=== PATIENT | male | born 1990 | race Caucasian/White ===

== ENCOUNTER 2018-12-19 23:36 | Emergency (ER) | payer MEDICAID ==
--- NOTE | 2018-12-20 00:01 | ERPHSYRPT ---
- History of Present Illness Time Seen by Provider: 12/20/18 00:00 Source: patient, family Exam Limitations: no limitations Physician History: 28 y/o left handed white male presents with laceration to tip of left ring finger. occurred [employer] on [employer]. does not recall when last tetanus shot was. Timing/Duration: today Quality: painful Severity: mild Location: hands (left tip of ring finger) Associated Symptoms: denies symptoms - Review of Systems Constitutional: No Symptoms Eyes: No Symptoms Ears, Nose, & Throat: No Symptoms Respiratory: No Symptoms Cardiac: No Symptoms Abdominal/Gastrointestinal: No Symptoms Genitourinary Symptoms: No Symptoms Musculoskeletal: No Symptoms Skin: Other (laceration tip of left ring finger) Neurological: No Symptoms Psychological: No Symptoms Endocrine: No Symptoms Hematologic/Lymphatic: No Symptoms Immunological/Allergic: No Symptoms All Other Systems: Reviewed and Negative - Past Medical History Neurological History: No Pertinent History ENT History: No Pertinent History Cardiac History: No Pertinent History Respiratory History: No Pertinent History Endocrine Medical History: No Pertinent History Musculoskeletal History: No Pertinent History GI Medical History: No Pertinent History History: No Pertinent History Psycho-Social History: No Pertinent History Male Reproductive Disorders: No Pertinent History - Past Surgical History Neuro Surgical History: No Pertinent History Cardiac: No Pertinent History Respiratory: No Pertinent History Gastrointestinal: No Pertinent History Genitourinary: No Pertinent History Musculoskeletal: No Pertinent History Male Surgical History: No Pertinent History - Nursing Vital Signs Nursing Vital Signs: Initial Vital Signs Temperature 99.4 F 12/19/18 23:53 Pulse Rate 90 12/19/18 23:53 Respiratory Rate 18 12/19/18 23:53 O2 Sat by Pulse Oximetry 99 12/19/18 23:53 Pain Scale Pain Intensity 6 - Physical Exam General Appearance: no apparent distress, alert, anxiety Eye Exam: PERRL/EOMI Ears, Nose, Throat Exam: normal ENT inspection, moist mucous membranes Neck Exam: normal inspection, non-tender, supple, full range of motion Respiratory Exam: normal breath sounds Gastrointestinal/Abdomen Exam: soft, No tenderness Rectal Exam: not done Back Exam: normal inspection, normal range of motion, No CVA tenderness, No vertebral tenderness Extremity Exam: lacerations (tip of left ring finger) Neurologic Exam: alert, oriented x 3, cooperative, composite mechanic II-XII nml as tested Skin Exam: normal color, warm, dry Lymphatic Exam: No adenopathy SpO2 Interpretation: normal O2 Delivery: Room Air Procedures - Laceration/Wound Repair Left Finger Wound Length (cm): 0.5 Wound's Depth, Shape: superficial Wound Explored: clean Irrigated: Yes Hibiclens Prep: Yes Anesthesia: 1% Lidocaine Volume Anesthetic (ccs): 1 Progress: 12/20/18 00:19 no sutures needed. used 1% lidocaine plain, silver nitrate sticks, bacitracin ointment, pressure dressing. - Course Nursing assessment & vital signs reviewed: Yes - Progress Progress: improved Counseled pt/family regarding: diagnosis, need for follow-up - Departure Departure Disposition: Home Clinical Impression: Fingertip amputation Condition: Stable Critical Care Time: No Referrals: DOCTOR,NO FAMILY [Primary Care Provider] - Additional Instructions: keep current dressing in place for 48 hours. after 48 hours, remove top dressing , wash daily then apply antibiotic ointment and nonstick dressing daily. use tylenol and ibuprofen for pain.
[2018-12-20 00:06] VITALS: O2SAT 99
[2018-12-20] MEDS ORDERED: BACIGUENT PACKET ONE (00:11)
[2018-12-20] MEDS ORDERED: ARZOL Silver Nitrate Applicator TP ONE (00:12)
[2018-12-20] MEDS ORDERED: XYLOCAINE 1% HCL 20 ML MDV ONE (00:43)
[2018-12-20] MEDS: Adacel Vial IM ONE (00:46)
[2018-12-20] MEDS ORDERED: Adacel Vial IM ONE (00:46)
[2018-12-20] MEDS: BACIGUENT PACKET TP ONE (00:49)
[2018-12-20] MEDS: ARZOL Silver Nitrate Applicator TP ONE (00:49)
[2018-12-20] MEDS: XYLOCAINE 1% HCL 20 ML MDV IJ ONE (00:49)
[2018-12-20 01:20] VITALS: BP 127/68; PULSE 74
== END 2018-12-20 01:10 | disposition home or self-care (01) ==
LOC: ED 23:36
DX: S68.125A Partial traumatic metacarpophalangeal amputation of left ring finger, initial encounter (principal); W31.82XA Contact with other commercial machinery, initial encounter
CPT/HCPCS: 12001; 90471; 90715; 96372; 99284; A9270-GY